=== PATIENT | female | born 1990 ===

== ENCOUNTER 2018-07-01 14:11 | Emergency (ER) | payer MEDICAID, OTHER ==
[~2018-07-01 14:11] MED LIST: LAMO100T52 PO; PREN-123 PO
[2018-07-01 14:21] VITALS: BP 96/77
[2018-07-01] MEDS ORDERED: CITA-141 PO (14:32)
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
== END 2018-07-01 14:46 | disposition home or self-care (01) ==
LOC: ER 14:26
DX: S40.012A Contusion of left shoulder, initial encounter (principal); R51 Headache
CPT/HCPCS: 99281